=== PATIENT | female | born 1960 | race Caucasian/White ===

== ENCOUNTER → 2017-11-16 15:51 | Outpatient (CLI) | payer BC, OTHER, SELFPAY ==
--- NOTE | 2017-11-16 15:58 | NVE_ITS ---
Venous Exam Indications: 729.5 Pain in limb. IMPRESSIONS 1. There is no evidence of significant Reflux. 2. No evidence of deep or superficial vein thrombosis involving the right lower extremity History: Risk factors: Recent surgery: ARHTOSCOPY R KNEE. Right lower extremity venous duplex evaluation. Doppler flow study including spectral analysis, color and styles scale imaging. Location: Vascular laboratory. Patient status: Outpatient. CRITICAL FINDINGS - Reported to: VERONA - Read back and verified. - 11/16/17 - 1616 - NONE Tables: Venous flow and imaging: + +-------+ + Location Overall Flow properties + +-------+ + Right common femoral Patent Normal phasicity; spontaneous; normal augmentation; compressible + +-------+ + Right saphenofemoral junction Patent Compressible + +-------+ + Right profunda femoral Patent Compressible + +-------+ + Right femoral Patent Normal phasicity; spontaneous; normal augmentation; compressible + +-------+ + Right greater saphenous Patent Normal phasicity; spontaneous; normal augmentation; compressible + +-------+ + Right popliteal Patent Normal phasicity; spontaneous; normal augmentation; compressible + +-------+ + Right posterior tibial Patent Compressible + +-------+ + Right peroneal Patent Compressible + +-------+ + Right gastrocnemius Patent Compressible + +-------+ + Right soleal Patent Compressible + +-------+ + (Report amended ) Electronically signed by: Reg Frost [id number]
== END ==
PROVIDERS: Visit Provider Orthopaedic Surgery
DX: M79.661 Pain in right lower leg; R60.0 Localized edema
CPT/HCPCS: 93971

== ENCOUNTER → 2018-07-07 17:47 | Outpatient (CLI) | payer BC, SELFPAY | PROVIDERS: PCP Family Medicine; Visit Provider Otolaryngology | DX: G47.33 Obstructive sleep apnea (adult) (pediatric) (principal); G47.30 Sleep apnea, unspecified; R40.0 Somnolence; R06.83 Snoring; R53.83 Other fatigue | CPT/HCPCS: 95806 ==

== ENCOUNTER → 2018-07-13 11:05 | Outpatient (CLI) | payer BC, SELFPAY ==
--- NOTE | 2018-07-13 11:10 | XR_ITS ---
XR tibia fibula LT 2V CLINICAL INDICATION: Medial leg pain below the knee ITS.REASON: LT LEG PAIN ORDERING PHYSICIAN: Betzaida Xiong PATIENT AGE: 58 years Comparison: None FINDINGS: No fracture or dislocation. No bony or joint abnormality IMPRESSION: Negative left tib-fib
== END ==
PROVIDERS: PCP Family Medicine; Visit Provider Family Medicine
DX: M79.605 Pain in left leg (principal)
CPT/HCPCS: 73590

== ENCOUNTER → 2018-07-19 10:44 | Outpatient (POV) | payer BC, SELFPAY | PROVIDERS: Visit Provider Otolaryngology | DX: Z00.00 Encounter for general adult medical examination without abnormal findings (principal) ==

== ENCOUNTER → 2018-07-28 12:54 | Outpatient (CLI) | payer BC, SELFPAY ==
[2018-07-28 13:15] LABS: Blood Urea Nitrogen 11 mg/dL (7-18); Creatinine,Serum 0.87 mg/dL (0.55-1.02); Estimated Glomerular Filt Rate 67 ml/min (>60); GFR (African American) 81 ML/MIN (>60)
--- NOTE | 2018-07-28 13:20 | CT_ITS ---
CT lower leg LT w con INDICATION: Left lower leg pain. ITS.REASON: LOW LEG PAIN ORDERING PHYSICIAN: Betzaida Xiong PATIENT AGE: 58 years COMPARISON: None TECHNIQUE: Axial images are obtained without contrast. Sagittal and coronal reformatted images are reviewed as well. All CT scans at the facility use one or more dose reduction, viz: automated exposure control, ma/kV adjustment per patient size (including targeted exams where dose is matched to indication, i.e. head), or iterative reconstruction technique. FINDINGS: No fracture or dislocation is evident. No bony lytic or destructive lesion. No soft tissue mass or abnormal enhancement. No periosteal reaction. There is some minimal stranding of the fat just superficial to the mid shaft of the tibia medially. This is nonspecific and could be due to some mild inflammation. This is a bare area of the tibia with no overlying musculature. There is a small focus of calcification at this region which is nonspecific. No abscess is evident. No bony cortical reaction. IMPRESSION: Minimal stranding of the fat just superficial to the mid shaft of the tibia medially suggesting some underlying inflammation of the overlying fascia. No abscess or periosteal reaction. No bony erosive process.
== END ==
PROVIDERS: PCP Family Medicine; Visit Provider Family Medicine
DX: M79.605 Pain in left leg (principal); I10 Essential (primary) hypertension
CPT/HCPCS: 36415; 73701; 82565; 84520; Q9967